=== PATIENT | male | born 1970 | race African-American/Black ===

== ENCOUNTER 2024-08-09 11:19 | Emergency (ER) | payer OTHER ==
[~2024-08-09] VITALS: Ht 193 cm; Wt 99.5 kg
[2024-08-09 11:37] VITALS: TEMP 36.8; O2SAT 100
[2024-08-09] MEDS: LIDOCAINE 5% PATCH TOP ONE (13:33)
[2024-08-09] MEDS: KETOROLAC 30MG/ML VIAL IM ONE (13:33)
[2024-08-09] MEDS ORDERED: KETO10TA2 MT (14:44)
[2024-08-09] MEDS ORDERED: CYCL10TA21 MT (14:44)
[2024-08-09] MEDS ORDERED: LIDO700A30 TP (14:44)
[2024-08-09 15:00] VITALS: BP 159/105; PULSE 71; RESP 18; O2SAT 100
== END 2024-08-09 15:12 | disposition home or self-care (01) ==
LOC: ER 11:19
DX: M47.22 Other spondylosis with radiculopathy, cervical region (principal); I10 Essential (primary) hypertension; Z79.899 Other long term (current) drug therapy; Z98.890 Other specified postprocedural states
CPT/HCPCS: 72040; 96372; 99283; J1885; Z7610